=== PATIENT | male | born 1985 | race Caucasian/White ===

== ENCOUNTER 2020-02-14 23:46 | Emergency (ER) | payer OTHER, SELFPAY ==
[2020-02-15 00:15] VITALS: BP 135/81; PULSE 69; RESP 20; TEMP 36.4; O2SAT 99
[2020-02-15 00:47] LABS: Basophils Absolute Auto 0.1 K/mm3 (0.0-0.1); Basophils Percent Auto 0.6 % (0.2-1.2); Eosinophils Absolute Auto 0.5 K/mm3 (0-0.3); Eosinophils Percent Auto 4.2 % (0-4.4); Hematocrit 43.5 % (42.0-52.0); Hemoglobin 15.7 g/dL (14.0-18.0); Immature Granulocyte Percent A 0.8 % (0-0.5); Lymphocytes Absolute Auto 2.18 K/mm3 (0.9-3.2); Lymphocytes Percent Auto 17.6 % (18.3-44.2); Mean Corpuscular HGB Conc 36.1 g/dl (32-36); Mean Corpuscular Hemoglobin 33.6 pg (26-34); Mean Corpuscular Volume 93.1 fl (80-100); Mean Platelet Volume 10.1 fl (7.4-10.4); Monocytes Absolute Auto 0.6 K/mm3 (0.1-0.6); Monocytes Percent Auto 5.2 % (2.6-8.5); Neutrophils Absolute Auto 8.9 K/mm3 (1.3-6.7); Neutrophils Percent Auto 71.6 % (45.5-73.1); Platelet Count Result 241 k/mm3 (150-375); Red Blood Count 4.67 M/mm3 (4.6-6.20); Red Cell Distribution Width 12.2 % (11.5-14.5); White Blood Count 12.4 K/mm3 (4.5-10.0)
[2020-02-15 01:00] LABS: Alanine Aminotransferase 78 U/L (4-50); Albumin Level 4.8 g/dL (3.5-5.1); Alkaline Phosphatase 84 U/L (38-126); Aspartate Amino Transferase 120 U/L (17-59); Bilirubin,Total 0.5 mg/dL (0.2-1.3); Blood Urea Nitrogen 16 mg/dL (9-20); Carbon Dioxide 26 mmol/L (22-30); Chloride 103 mmol/L (98-107); Estimated CRCL calculation 129 ml/min; Estimated Glomerular Filt Rate > 60; Glucose 103 mg/dL (75-110); Lipase 123 U/L (23-300); Potassium 4.2 mmol/L (3.4-5.0); Sodium 136 mmol/L (137-145)
[2020-02-15 01:41] VITALS: BP 130/84; PULSE 66; RESP 18; TEMP 36.2; O2SAT 100
[2020-02-15 02:41] LABS: Add Urine Microscopic? YES; Appearance Urine Clear (Clear); Bacteria Urine Trace /hpf; Bilirubin Urine Negative (Negative); Blood Urine Negative (Negative); Color Urine Yellow (Yellow); Glucose Urine UA Negative (Negative); Ketones Urine Negative (Negative); Leukocyte Esterase Ur Negative LEU/UL (Negative); Mucus Urine Rare /lpf; Nitrate Urine Negative (Negative); Protein Urine Negative (Negative); RBC Urine 0-2 /hpf (0-2); Specific Grav Ur 1.024 (1.001-1.035); Squamous Epithelial Cell Urine Rare /hpf (Few); WBC Urine 0-3 /hpf
--- NOTE | 2020-02-15 03:02 | ED.ABDPAIN ---
HPI - Abdominal Pain General Chief Complaint: Abdominal Pain Stated Complaint: RUQ pain Time Seen by Provider: 02/15/20 02:32 Source: patient Mode of arrival: ambulatory History of Present Illness HPI narrative: This patient is a 34 year old male who presents for evaluation of right upper abdominal pain . He states he has been having intermittent pain . Tonight he developed pain around 10 pm. He states his pain was so severe they called EMS, but then he refused transport because his pain subsided. His pain commonly occurs at night. He states his pain did return prior to arrival but he does not have pain any more. He denies associated nausea, vomiting, diarrhea, or fever. He denies history of gallbladder disease. MD elicited complaint: abdominal pain Pain Consistency: now resolved Location: RUQ Related Data Home Medications Medication Instructions Recorded Confirmed lisinopril 20 mg PO DAILY 02/15/20 Allergies Allergy/AdvReac Type Severity Reaction Status Date / Time tetracycline Allergy Hives Verified 02/15/20 02:20 Review of Systems Review of Systems: All systems reviewed & are unremarkable except as noted in HPI and below Constitutional: Constitutional: Denies chills and Denies fever(s) Cardiovascular: Cardiovascular: Denies chest pain Respiratory: Respiratory: Denies cough Gastrointestinal: Gastrointestinal: Reports abdominal pain, Denies diarrhea, Denies nausea and Denies vomiting Genitourinary: Genitourinary: Denies hematuria Musculoskeletal: Musculoskeletal: Denies back pain PMFSH Past Medical History Medical History (Updated 02/15/20 @ 03:09 by Lauren Dwyer MD) Hypertension Social History Social History (Updated 02/15/20 @ 03:05 by Lauren Dwyer MD) Alcohol intake: current Alcohol use details: socially Substance use: never Exam Narrative: Exam Narrative: GENERAL: Well-appearing, well-nourished, and in no acute distress. HEAD: Normocephalic, atraumatic EYES: PERRLA and EOMI, conjunctiva clear without discharge THROAT:Mucous membranes moist, Oropharynx normal without erythema, exudate, peritonsillar swelling or fluctuance NECK: Supple, without lymphadenopathy or mass RESPIRATORY: No respiratory distress, Airway patent, Respirations non-labored, Clear to auscultation without rales, rhonchi or wheeze HEART: Regular rate and rhythm. No murmur heard. Normal peripheral pulses. ABDOMEN: Soft, nontender, nondistended, normal active bowel sounds. No masses. No rebound or guarding, No organomegaly. EXTREMITIES: No edema, normal strength with full range of motion. SKIN: Warm, dry, normal color without rash NEURO: Alert and oriented x3. CN 2-12 grossly intact. No focal deficits. PSYCH: Normal mood and affect. Course Reevaluation(s) Reevaluation #1: Patient has no pain currently. He is agreeable to follow up with PCP for gallbladder ultrasound to better assess pain. He has not fever, vomiting to suggest urgent need for CT . I Discussed low fat diet Date: 02/15/20 Time: 03:06 Vital Signs Vital signs: Vital Signs Temperature 97.6 F 02/15/20 00:15 Pulse Rate 69 02/15/20 00:15 Respiratory Rate 20 02/15/20 00:15 Blood Pressure 135/81 02/15/20 00:15 Pulse Oximetry 99 02/15/20 00:15 Temperature 97.2 F L 02/15/20 01:41 Pulse Rate 68 02/15/20 03:27 Respiratory Rate 16 02/15/20 03:27 Blood Pressure 122/85 02/15/20 03:27 Pulse Oximetry 97 02/15/20 03:27 MDM - Abdominal Pain Lab Data Result diagrams: 02/15/20 00:28 02/15/20 00:28 Labs: Lab Results 02/15/20 02/15/20 02/15/20 Range/Units 00:28 00:28 02:10 WBC 12.4 H (4.5-10.0) K/mm3 RBC 4.67 (4.6-6.20) M/mm3 Hgb 15.7 (14.0-18.0) g/dL Hct 43.5 (42.0-52.0) % MCV 93.1 (80-100) fl MCH 33.6 (26-34) pg MCHC 36.1 H (32-36) g/dl RDW 12.2 (11.5-14.5) % Plt Count 241 (150-375) k/mm3 MPV 10.1 (7.4-10
[2020-02-15 03:27] VITALS: BP 122/85; PULSE 68; RESP 16; O2SAT 97
== END 2020-02-15 03:30 | disposition home or self-care (01) ==
PROVIDERS: Emergency Provider General Practice; PCP Internal Medicine
DX: R10.11 Right upper quadrant pain (principal); I10 Essential (primary) hypertension
CPT/HCPCS: 36415; 80053; 81001; 83690; 85025; 99283